=== PATIENT | female | born 1990 | race Two or more races ===

== ENCOUNTER 2023-01-08 19:14 | Emergency (ER) | payer SELFPAY ==
[~2023-01-08] VITALS: Ht 154.9 cm; Wt 61.2 kg
[2023-01-08 19:22] VITALS: BP 129/98
[2023-01-08] MEDS ORDERED: CEPHALEXIN MONOHYDRATE 500 MG CAPSULE PO ONE ×2 (20:00→20:03)
[2023-01-08] MEDS ORDERED: TDAP [DIPH/PERTUSSIS/TET] 0.5 ML VIAL IM ONE ×2 (20:00→20:04)
--- NOTE | 2023-01-08 20:02 | NUR ---
DR MICHELLE TERESA AT PT'S BEDSIDE FOR DERMABOND LAC
[2023-01-08] MEDS ORDERED: CEPH500T PO (20:45)
--- NOTE | 2023-01-08 20:59 | NUR ---
Patient discharged to home in stable condition. Written and verbal after care instructions given. Patient verbalizes understanding of instruction. Pt ambulatory with a steady gait
== END 2023-01-08 20:59 | disposition home or self-care (01) ==
LOC: ER 19:18
DX: S61.212A Laceration without foreign body of right middle finger without damage to nail, initial encounter (principal); Z88.2 Allergy status to sulfonamides; W27.8XXA Contact with other nonpowered hand tool, initial encounter; Y93.89 Activity, other specified; Y92.89 Other specified places as the place of occurrence of the external cause; Y99.8 Other external cause status
CPT/HCPCS: 90715